=== PATIENT | female | born 1990 | race Caucasian/White ===

== ENCOUNTER 2016-05-30 11:18 | Emergency (ER) | payer OTHER ==
[2016-05-30 11:29] VITALS: BP 145/81; PULSE 106; TEMP 98.6; BMI 26.9
[2016-05-30] MEDS ORDERED: KETOROLAC TROMETHAMINE 60 MG/2 ML VIAL IM ONE (13:13)
[2016-05-30] MEDS ORDERED: KETOROLAC TROMETHAMINE 60 MG/2 ML VIAL ONE (13:30)
[2016-05-30] MEDS ORDERED: CLINDAMYCIN HCL 300 MG CAPSULE PO ONE (14:17)
[2016-05-30] MEDS ORDERED: CLINDAMYCIN HCL 150 MG CAPSULE (FP) ONE (14:24)
--- NOTE | 2016-05-30 14:57 | PDOC ---
History of Present Illness - General Chief Complaint: Sore Throat Stated Complaint: THROAT PAIN Time Seen by Provider: 05/30/16 13:00 History Source: Patient Exam Limitations: No Limitations - History of Present Illness Initial Comments: 05/30/16 14:53 CC of sore throat x last night; with fever; no cough Timing/Duration: 24 hours Severity: moderate Associated Symptoms: reports: fever/chills, headaches. denies: chest pain, cough, nausea/vomiting Past History - Past Medical History Allergies/Adverse Reactions: Allergies Allergy/AdvReac Type Severity Reaction Status Date / Time Penicillins Allergy Difficulty Verified 05/30/16 11:29 Breathing Home Medications: Ambulatory Orders NK [No Known Home Medication] 05/30/16 Asthma: Yes - Psycho/Social/Smoking Cessation Hx Anxiety: No Suicidal Ideation: No Smoking History: Current some day smoker Number of Cigarettes Smoked Daily: 2 Information on smoking cessation initiated: No Hx Alcohol Use: Yes (SOCIAL) Drug/Substance Use Hx: No Substance Use Type: None Review of Systems - Review of Systems Constitutional: Yes: Fever, Malaise. No: Chills HEENTM: Yes: Throat Pain, Throat Swelling, Difficulty Swallowing. No: Nose Congestion Respiratory: No: Cough Cardiac (ROS): No: Symptoms Reported, Edema ABD/GI: No: Symptoms Reported *Physical Exam - Vital Signs Last Vital Signs Temp Pulse Resp BP Pulse Ox 98.6 F 106 H 20 145/81 100 05/30/16 11:27 05/30/16 11:27 05/30/16 11:27 05/30/16 11:27 05/30/16 11:27 - Physical Exam General Appearance: Yes: Appropriately Dressed, Apparent Distress HEENT: positive: TMs Normal, Pharyngeal Erythema, Tonsillar Exudate, Tonsillar Erythema. negative: Pharynx Normal, Nasal Congestion, TM Bulging, TM Dull, TM Erythema, Excessive drooling Neck: positive: Supple, Lymphadenopathy (R), Lymphadenopathy (L). negative: Tender, Rigid Respiratory/Chest: positive: Lungs Clear, Normal Breath Sounds. negative: Accessory Muscle Use Cardiovascular: positive: Regular Rhythm, Regular Rate Female Pelvic Exam: positive: normal external exam ED Treatment Course - ADDITIONAL ORDERS Additional order review: Laboratory Results 05/30/16 13:14 Urine HCG, Qual Negative 05/30/16 13:14 Group A Strep Rapid Antigen - Final Throat - RADIOLOGY Radiology Studies Ordered: Category Date Time Status NECK SOFT TISSUE [RAD] Stat Radiology 05/30/16 13:10 Completed - Medications Given in the ED: ED Medications Discontinued Medications Generic Name Dose Route Start Last Admin Trade Name Freq PRN Reason Stop Dose Admin Clindamycin HCl 300 mg 05/30/16 14:17 05/30/16 14:25 Cleocin - PO 05/30/16 14:18 300 mg ONCE ONE Administration Ketorolac Tromethamine 60 mg 05/30/16 13:13 05/30/16 13:40 Toradol Injection - IM 05/30/16 13:14 60 mg ONCE ONE Administration Medical Decision Making - Medical Decision Making 05/30/16 14:55 feeling better post toradol; able to swollow ABX in ED; allergies to PCN *DC/Admit/Observation/Transfer Diagnosis at time of Disposition: Acute streptococcal pharyngitis - Discharge Dispostion Disposition: HOME Condition at time of disposition: Stable Admit: No - Patient Instructions Additional Instructions: gargle; lots of fluids; see local MD 2 days if no better; advil 400mg 3 times daily for pain
== END 2016-05-30 15:02 | disposition home or self-care (01) ==
LOC: JERFT 11:18
PROC: 3E0233Z Introduction of Anti-inflammatory into Muscle, Percutaneous Approach (ICD-10-PCS; principal; 2016-05-30)
DX: J02.0 Streptococcal pharyngitis (principal); B95.5 Unspecified streptococcus as the cause of diseases classified elsewhere; F17.210 Nicotine dependence, cigarettes, uncomplicated
CPT/HCPCS: 70360-TC; 84703; 87070; 87077; 87430; 96372; 99281-25